=== PATIENT | male | born 1965 | race Asian ===

== ENCOUNTER 2024-11-10 00:48 | Inpatient (IN) | payer MEDICAID ==
[2024-11-10] VITALS (15 sets, daily range): BP systolic 99–118; BP diastolic 65–73; PULSE 57–95; RESP 16–18; TEMP 97.6–98.1; O2SAT 90–99
[~2024-11-10] VITALS: Ht 167.6 cm; Wt 61.4 kg
[2024-11-10 01:39] LABS: COVID AG,FIA SOURCE NASAL SWAB
[2024-11-10 01:41] LABS: HEMATOCRIT 43.9 % (41-53); HEMOGLOBIN 14.8 g/dL (13.5-17.5); MEAN CORPUSCULAR HEMOGLOBIN 32.8 pg (26.0-34.0); MEAN CORPUSCULAR HGB CONC 33.6 G/dL (31.0-37.0); MEAN CORPUSCULAR VOLUME 98 fL (80-100); PLATELET COUNT (AUTO) 384 K/uL (150-450); RED CELL DISTRIBUTION WIDTH 14.7 % (11.5-14.5); WHITE BLOOD COUNT (AUTO) 16.2 K/uL (4.5-11.0)
[2024-11-10 01:50] LABS: CALCIUM, TOTAL 8.7 mg/dL (8.8-10.5); CREATININE 1.43 mg/dL (0.60-1.30); POTASSIUM 4.4 mmol/L (3.5-5.1)
[2024-11-10 01:58] LABS: TROPONIN I-HIGH SENSITIVITY 6 ng/L (<76)
[2024-11-10 02:10] LABS: SARS-COV2 (COVID) ANTIGEN,FIA Negative (Negative)
[2024-11-10 02:11] LABS: INFLUENZA TYPE A NEGATIVE FOR TYPE A (NEGATIVE); INFLUENZA TYPE B NEGATIVE FOR TYPE B (NEGATIVE)
[2024-11-10] MEDS: IPRATROPIUM BROMIDE 0.5 MG/2.5 ML NEB SOLUTION NEB ONE ×3 (03:09→04:57)
[2024-11-10] MEDS: ALBUTEROL SULFATE 2.5 MG/0.5 ML NEB SOLUTION NEB ONE ×3 (03:10→04:57)
[2024-11-10] MEDS: MethylPREDNISolone SOD SUCC 125 MG/2 ML VIAL IVP ONE (03:42)
[2024-11-10] MEDS: CefTRIAXone 1 GM/DEXTROSE 50 ML IV ONE (03:42)
[2024-11-10] MEDS: AZITHROMYCIN 500 MG/NS 250 ML IV ONE (03:43)
[2024-11-10 03:56] LABS: BAND NEUTROPHILS % (MANUAL) 10 % (0-5); LYMPHOCYTES % (MANUAL) 8 % (22-44); METAMYELOCYTES % 3 % (0-0); MONOCYTES % (MANUAL) 6 % (2-9); PLATELET MORPHOLOGY COMMENT LARGE PLTS PRESENT; SEGMENTED NEUTROPHILS % 73 % (40-70); TOTAL CELLS COUNTED 100
[2024-11-10] MEDS: KETOROLAC TROMETHAMINE 30 MG/ML VIAL IVP ONE (04:44)
[2024-11-10] MEDS: OxyCODONE HCL/ACETAMINOPHEN 5-325 MG TABLET PO ONE (04:44)
[2024-11-10 04:48] LABS: ABG BASE EXCESS -3.4 mmol/L (-2.0-3.0); ABG CARBOXYHEMOGLOBIN 1.3 % (0.5-1.5); ABG HCO3 22.5 mmol/L (21.0-28.0); ABG METHEMOGLOBIN 0.6 % (0.0-1.5); ABG OXYGEN CONTENT 18.5 mL/dL (15.0-23.0); ABG OXYGEN SATURATION 90.3 % (94.0-98.0); ABG OXYHEMOGLOBIN 88.6 % (94.0-98.0); ABG PCO2 31 mmHg (32.0-48.0); ABG TOTAL HEMOGLOBIN 14.9 G/dL (13.5-17.5); ALLEN TEST, BLOOD GAS Positive; PO2, ARTERIAL BG 58.1 mmHg (83.0-108.0); SITE, BLOOD GAS LFT RADIAL; SOURCE, BLOOD GAS ARTERIAL; TEMPERATURE, FAHRENHEIT, BG 99.4 FAHREN (96.0-98.6)
[2024-11-10 04:49] LABS: O2 DEVICE,BLOOD GAS ROOM AIR (ROOM AIR)
[2024-11-10] MEDS: SODIUM CHLORIDE 0.9% 1,000 ML IV ONE (05:59)
[2024-11-10 08:19] LABS: APPEARANCE,URINE CLEAR (CLEAR); BILIRUBIN,URINE NEGATIVE (NEGATIVE); COLOR,URINE YELLOW (YELLOW); GLUCOSE, URINE (UA) NEGATIVE (NEGATIVE); KETONES,URINE TRACE mg/dL (NEGATIVE); LEUKOCYTE ESTERASE ,URINE NEGATIVE (NEGATIVE); NITRATE,URINE NEGATIVE (NEGATIVE); OCCULT BLOOD,URINE TRACE (NEGATIVE); PROTEIN,URINE 30-70 mg/dL (NEGATIVE); SPECIFIC GRAVITIY, URINE 1.025 (1.003-1.030)
[2024-11-10 08:45] LABS: BACTERIA,URINE None Seen /HPF (None Seen); RBC,URINE 0-2 /HPF (0-2); SQUAMOUS EPITHELIAL CELL,UR Few /LPF (None Seen); WBC,URINE None Seen /HPF (0-5)
[2024-11-10] MEDS: INFLUENZA VIRUS VACCINE TVS (6MO+) 2024-25/PF 45 MCG/0.5 ML SYRINGE IM. ONE (13:59)
[2024-11-10] MEDS: NICOTINE 14 MG/24 HOUR PATCH TD SCH (14:14)
[2024-11-10] MEDS: MethylPREDNISolone SOD SUCC 125 MG/2 ML VIAL IVP SCH (14:17)
[2024-11-10] MEDS: IPRATROPIUM BROMIDE 0.5 MG/2.5 ML NEB SOLUTION NEB SCH (19:52)
[2024-11-10] MEDS: BUDESONIDE 0.5 MG/2 ML NEB SOLUTION NEB SCH (19:52)
[2024-11-10] MEDS: ALBUTEROL SULFATE 2.5 MG/0.5 ML NEB SOLUTION NEB SCH (19:52)
[2024-11-10] MEDS ORDERED: BISACODYL 10 MG RECTAL RECTAL SUPPOSITORY PR PRN (23:00)
[2024-11-10] MEDS ORDERED: IPRATROPIUM BROMIDE 0.5 MG/2.5 ML NEB SOLUTION NEB PRN (23:00)
[2024-11-10] MEDS ORDERED: MORPHINE SULFATE 2 MG/ML SYRINGE IVP PRN (23:00)
[2024-11-10] MEDS ORDERED: ALBUTEROL SULFATE 2.5 MG/0.5 ML NEB SOLUTION NEB PRN (23:00)
[2024-11-10] MEDS ORDERED: OxyCODONE HCL/ACETAMINOPHEN 5-325 MG TABLET PO PRN (23:00)
[2024-11-10] MEDS ORDERED: ACETAMINOPHEN 325 MG TABLET PO PRN (23:00)
[2024-11-10] MEDS ORDERED: ONDANSETRON HCL 4 MG/2 ML VIAL IVP PRN (23:00)
[2024-11-11] VITALS (13 sets, daily range): BP systolic 105–118; BP diastolic 51–76; PULSE 65–103; RESP 10–20; TEMP 97.6–98.1; O2SAT 94–100
[2024-11-11] MEDS: HEPARIN SODIUM,PORCINE 5,000 UNITS/ML VIAL SQ SCH (00:56)
[2024-11-11] MEDS ORDERED: SODIUM CHLORIDE 0.9% 250 ML IV ONE (03:47)
[2024-11-11] MEDS: DOXYCYCLINE HYCLATE 100 MG in DEXTROSE 5%-WATER 100 ML IV SCH (05:31)
[2024-11-11] MEDS: DOCUSATE SODIUM 100 MG CAPSULE PO SCH (07:54)
[2024-11-11] MEDS: PANTOPRAZOLE SODIUM 40 MG/VIAL IVP SCH (07:54)
[2024-11-11] MEDS: CefTRIAXone 1 GM/DEXTROSE 50 ML IV SCH (08:21)
[2024-11-12] VITALS (18 sets, daily range): BP systolic 92–123; BP diastolic 42–72; PULSE 67–85; RESP 16–22; TEMP 97.7–98.6; O2SAT 93–99
[2024-11-12 06:16] LABS: BASOPHILS % (AUTO) 0.2 % (0.0-2.0); EOSINOPHILS % (AUTO) 0 % (1.0-6.0); HEMATOCRIT 38.6 % (41-53); HEMOGLOBIN 12.7 g/dL (13.5-17.5); LYMPHOCYTES # (AUTO) 0.4 K/uL (1.0-4.8); LYMPHOCYTES % (AUTO) 2.6 % (22.0-44.0); MEAN CORPUSCULAR HGB CONC 32.9 G/dL (31.0-37.0); MEAN CORPUSCULAR VOLUME 97 fL (80-100); MONOCYTES # (AUTO) 0.9 K/uL (0.1-1.0); MONOCYTES % (AUTO) 5.8 % (2.0-9.0); PLATELET COUNT (AUTO) 437 K/uL (150-450); RED BLOOD CELL COUNT(AUTO) 3.97 MIL/uL (4.50-5.90); RED CELL DISTRIBUTION WIDTH 14.6 % (11.5-14.5); WHITE BLOOD COUNT (AUTO) 15.3 K/uL (4.5-11.0)
[2024-11-12 06:25] LABS: ALANINE AMINOTRANSFERASE 80 U/L (12-78); ALBUMIN 1.9 g/dL (3.4-5.0); ALKALINE PHOSPHATASE 179 U/L (46-116); ANION GAP 8 mmol/L (8-16); ASPARTATE AMINOTRANSFERASE 42 U/L (15-37); BILIRUBIN,TOTAL 0.5 mg/dL (0.1-1.0); CALCIUM, TOTAL 8.3 mg/dL (8.8-10.5); CARBON DIOXIDE 26 mmol/L (22-29); CHLORIDE 108 mmol/L (98-107); CREATININE 0.92 mg/dL (0.60-1.30); GLOMERULAR FILTR. RATE CALC > 60 mL/min (>60); GLUCOSE,RANDOM 156 mg/dL (70-110); POTASSIUM 3.7 mmol/L (3.5-5.1); SODIUM SERUM 142 mmol/L (136-145); TOTAL PROTEIN, SERUM 6.4 g/dL (6.4-8.2); UREA NITROGEN, BLOOD 26 mg/dL (7-18)
[2024-11-12 06:31] LABS: NEUTROPHILS % (AUTO) 91.4 % (40.0-70.0)
[2024-11-12] MEDS ORDERED: SODIUM CHLORIDE 0.9% 250 ML IV ONE (08:12)
[2024-11-12] MEDS: MAGNESIUM HYDROXIDE SUSPENSION 30 ML UDCUP PO PRN (17:29)
[2024-11-12] MEDS: MethylPREDNISolone SOD SUCC 40 MG/ML VIAL IVP SCH (17:30)
[2024-11-12] MEDS: ZOLPIDEM TARTRATE 5 MG TABLET PO PRN (21:56)
[2024-11-13] VITALS (17 sets, daily range): BP systolic 96–126; BP diastolic 57–76; PULSE 58–85; RESP 16–19; TEMP 98–98.6; O2SAT 93–100
[2024-11-13 07:59] LABS: BASOPHILS % (AUTO) 0.2 % (0.0-2.0); EOSINOPHILS % (AUTO) 0 % (1.0-6.0); HEMATOCRIT 37.7 % (41-53); HEMOGLOBIN 12.8 g/dL (13.5-17.5); LYMPHOCYTES # (AUTO) 0.9 K/uL (1.0-4.8); LYMPHOCYTES % (AUTO) 10.4 % (22.0-44.0); MEAN CORPUSCULAR HGB CONC 33.8 G/dL (31.0-37.0); MEAN CORPUSCULAR VOLUME 98 fL (80-100); MONOCYTES # (AUTO) 0.9 K/uL (0.1-1.0); MONOCYTES % (AUTO) 10.5 % (2.0-9.0); NEUTROPHILS # (AUTO) 6.7 K/uL (1.8-7.7); NEUTROPHILS % (AUTO) 78.9 % (40.0-70.0); PLATELET COUNT (AUTO) 478 K/uL (150-450); RED BLOOD CELL COUNT(AUTO) 3.86 MIL/uL (4.50-5.90); RED CELL DISTRIBUTION WIDTH 14.5 % (11.5-14.5); WHITE BLOOD COUNT (AUTO) 8.5 K/uL (4.5-11.0)
[2024-11-13 08:02] LABS: ANION GAP 10 mmol/L (8-16); CALCIUM, TOTAL 8.1 mg/dL (8.8-10.5); CARBON DIOXIDE 26 mmol/L (22-29); CHLORIDE 108 mmol/L (98-107); CREATININE 0.91 mg/dL (0.60-1.30); GLOMERULAR FILTR. RATE CALC > 60 mL/min (>60); GLUCOSE,RANDOM 189 mg/dL (70-110); POTASSIUM 4.3 mmol/L (3.5-5.1); SODIUM SERUM 144 mmol/L (136-145); UREA NITROGEN, BLOOD 21 mg/dL (7-18)
[2024-11-13] MEDS: RINGERS SOLUTION,LACTATED 1,000 ML IV ONE (13:29)
[2024-11-14] VITALS (9 sets, daily range): BP systolic 90–114; BP diastolic 51–63; PULSE 56–82; RESP 16–19; TEMP 98.1–98.4; O2SAT 94–98
[2024-11-14 07:21] LABS: BASOPHILS % (AUTO) 0.3 % (0.0-2.0); EOSINOPHILS % (AUTO) 0.4 % (1.0-6.0); HEMATOCRIT 35.4 % (41-53); HEMOGLOBIN 12.2 g/dL (13.5-17.5); LYMPHOCYTES # (AUTO) 2.4 K/uL (1.0-4.8); MEAN CORPUSCULAR HEMOGLOBIN 33.2 pg (26.0-34.0); MEAN CORPUSCULAR HGB CONC 34.4 G/dL (31.0-37.0); MEAN CORPUSCULAR VOLUME 97 fL (80-100); MONOCYTES # (AUTO) 0.8 K/uL (0.1-1.0); MONOCYTES % (AUTO) 9.2 % (2.0-9.0); NEUTROPHILS # (AUTO) 5.2 K/uL (1.8-7.7); NEUTROPHILS % (AUTO) 62.1 % (40.0-70.0); PLATELET COUNT (AUTO) 508 K/uL (150-450); RED BLOOD CELL COUNT(AUTO) 3.67 MIL/uL (4.50-5.90); RED CELL DISTRIBUTION WIDTH 14.7 % (11.5-14.5); WHITE BLOOD COUNT (AUTO) 8.4 K/uL (4.5-11.0)
[2024-11-14 07:26] LABS: ANION GAP 6 mmol/L (8-16); CALCIUM, TOTAL 8.3 mg/dL (8.8-10.5); CARBON DIOXIDE 28 mmol/L (22-29); CHLORIDE 105 mmol/L (98-107); CREATININE 0.91 mg/dL (0.60-1.30); GLOMERULAR FILTR. RATE CALC > 60 mL/min (>60); GLUCOSE,RANDOM 88 mg/dL (70-110); POTASSIUM 4.3 mmol/L (3.5-5.1); SODIUM SERUM 139 mmol/L (136-145); UREA NITROGEN, BLOOD 21 mg/dL (7-18)
[2024-11-14] MEDS: MethylPREDNISolone SOD SUCC 40 MG/ML VIAL IVP SCH (08:43)
[2024-11-14] MEDS: PredniSONE 20 MG TABLET PO SCH (08:57)
[2024-11-14] MEDS ORDERED: PRED-554 PO (11:13)
[2024-11-14] MEDS ORDERED: MIDO2.5T19 PO (11:13)
[2024-11-14] MEDS ORDERED: CEFD300C18 PO (11:13)
[2024-11-14] MEDS ORDERED: ALBU18HF12 IH (11:13)
[2024-11-14] MEDS ORDERED: DOXY-354 PO (11:13)
[2024-11-14] MEDS: MIDODRINE HCL 2.5 MG TABLET PO ONE (12:25)
== END 2024-11-14 13:30 | disposition home or self-care (01) | DRG 720 ==
LOC: EMS 00:50 → EDH 07:08 → ICU 09:58 → 5S 11-12 07:40
PROVIDERS: ADMIT Hospitalist; ATTEND Hospitalist
DX: A41.9 Sepsis, unspecified organism (principal); J96.01 Acute respiratory failure with hypoxia; N17.0 Acute kidney failure with tubular necrosis; J15.69 Pneumonia due to other Gram-negative bacteria; E87.1 Hypo-osmolality and hyponatremia; J44.0 Chronic obstructive pulmonary disease with (acute) lower respiratory infection; J44.1 Chronic obstructive pulmonary disease with (acute) exacerbation; Z20.822 Contact with and (suspected) exposure to COVID-19; I95.1 Orthostatic hypotension; Z72.0 Tobacco use
CPT/HCPCS: 71045; 71250; 80048; 80053; 81001; 82805; 83880; 84484; 85025; 87081; 87804; 93005; 93306; 93970; 94640; 99285; G0378; J0456; J0696; J1644; J1885; J2470; J2919; J3490; J7050; J7060; J7120; 36415-L1; 36415-TC; J7613